=== PATIENT | female | born 1960 | race Caucasian/White ===

== ENCOUNTER 2016-12-17 07:48 | Outpatient (CLI) | payer BC, OTHER ==
[2016-12-17 08:37] LABS: ALBUMIN 3.8 g/dL (3.4-5.0); BILIRUBIN,TOTAL 0.4 mg/dL (0.2-1.0); CALCIUM, SERUM 8.6 mg/dL (8.5-10.1); CREATININE 0.9 mg/dL (0.6-1.3); POTASSIUM 4.1 mmol/L (3.5-5.1); TOTAL PROTEIN, SERUM 7.4 g/dL (6.4-8.2)
== END 2016-12-17 23:59 | disposition home or self-care (01) ==
LOC: LAB 07:48
DX: R73.9 Hyperglycemia, unspecified (principal); E78.5 Hyperlipidemia, unspecified
CPT/HCPCS: 36415; 80053-TC; 80061-TC

== ENCOUNTER 2017-03-18 08:06 | Outpatient (CLI) | payer BC, OTHER ==
[2017-03-18 08:49] LABS: BILIRUBIN,TOTAL 0.5 mg/dL (0.2-1.0); CALCIUM, SERUM 9.1 mg/dL (8.5-10.1); CREATININE 0.9 mg/dL (0.6-1.3); POTASSIUM 4.3 mmol/L (3.5-5.1); TOTAL PROTEIN, SERUM 7.6 g/dL (6.4-8.2)
== END 2017-03-18 23:59 | disposition home or self-care (01) ==
LOC: LAB 08:06
DX: E78.5 Hyperlipidemia, unspecified (principal); R94.5 Abnormal results of liver function studies
CPT/HCPCS: 36415; 80053-TC; 80061-TC

== ENCOUNTER 2017-06-18 07:43 | Outpatient (CLI) | payer BC, OTHER ==
[2017-06-18 09:03] LABS: ALBUMIN 4.1 g/dL (3.4-5.0); BILIRUBIN,TOTAL 0.5 mg/dL (0.2-1.0); CALCIUM, SERUM 9.2 mg/dL (8.5-10.1); CREATININE 0.8 mg/dL (0.6-1.3); POTASSIUM 4.3 mmol/L (3.5-5.1); TOTAL PROTEIN, SERUM 7.8 g/dL (6.4-8.2)
== END 2017-06-18 23:59 | disposition home or self-care (01) ==
LOC: LAB 07:43
DX: E78.5 Hyperlipidemia, unspecified (principal); R73.9 Hyperglycemia, unspecified
CPT/HCPCS: 36415; 80053-TC; 80061-TC

== ENCOUNTER 2017-10-04 07:45 | Outpatient (CLI) | payer BC ==
[2017-10-04 09:32] LABS: CHOLESTEROL 251 mg/dL (<200); HDL CHOLESTEROL 54 mg/dL (40-60); LDL 168 mg/dL (0-99); TRIGLYCERIDES 101 mg/dL (30-150)
== END 2017-10-04 23:59 | disposition home or self-care (01) ==
LOC: LAB 07:45
DX: E78.5 Hyperlipidemia, unspecified (principal)
CPT/HCPCS: 36415; 80061-TC

== ENCOUNTER 2017-12-30 07:23 | Outpatient (CLI) | payer BC ==
[2017-12-30 09:09] LABS: ALBUMIN 3.8 g/dL (3.4-5.0); BILIRUBIN,TOTAL 0.5 mg/dL (0.2-1.0); CALCIUM, SERUM 9.4 mg/dL (8.5-10.1); CREATININE 0.8 mg/dL (0.6-1.3); TOTAL PROTEIN, SERUM 7.7 g/dL (6.4-8.2)
== END 2017-12-30 23:59 | disposition home or self-care (01) ==
LOC: LAB 07:23
DX: E78.5 Hyperlipidemia, unspecified (principal); R73.9 Hyperglycemia, unspecified
CPT/HCPCS: 36415; 80053-TC; 80061-TC

== ENCOUNTER 2018-03-04 07:46 | Outpatient (CLI) | payer BC ==
[2018-03-04 08:20] LABS: BASOPHILS % (AUTO) 0.6 % (0.0-2.0); EOSINOPHILS % (AUTO) 3.8 % (0.0-6.0); HEMATOCRIT 38 % (33-45); HEMOGLOBIN 12.9 g/dL (11.5-14.8); LYMPHOCYTES # (AUTO) 2.1 /CMM (0.8-4.8); LYMPHOCYTES % (AUTO) 39.8 % (20.0-44.0); MEAN CORPUSCULAR HGB CONC 34 g/dl (31.0-36.0); MEAN CORPUSCULAR VOLUME 92 fL (82-100); MONOCYTES # (AUTO) 0.4 /CMM (0.1-1.30); MONOCYTES % (AUTO) 7.3 % (2.0-12.0); NEUTROPHILS # (AUTO) 2.6 /CMM (1.8-8.9); NEUTROPHILS % (AUTO) 48.5 % (43.0-81.0); PLATELET COUNT (AUTO) 287 /CMM (150-450); RDW COEFFICIENT OF VARIATION 13.3 (11.5-15.0); WHITE BLOOD COUNT (AUTO) 5.3 K/uL (4.3-11.0)
[2018-03-04 08:36] LABS: ALBUMIN 3.9 g/dL (3.4-5.0); BILIRUBIN,TOTAL 0.5 mg/dL (0.2-1.0); CALCIUM, SERUM 9.1 mg/dL (8.5-10.1); CREATININE 0.9 mg/dL (0.6-1.3); TOTAL PROTEIN, SERUM 7.7 g/dL (6.4-8.2)
[2018-03-04 08:44] LABS: FREE T4 (FREE THYROXINE) 1.08 ng/dL (0.76-1.46); THYROID STIMULATING HORMONE 1.814 uIU/mL (0.358-3.74)
[2018-03-04 09:41] LABS: OCCULT BLOOD STOOL NEGATIVE (NEGATIVE)
[2018-03-04 09:46] LABS: APPEARANCE,URINE CLEAR (CLEAR); BILIRUBIN,URINE NEGATIVE (NEGATIVE); BLOOD, URINE NEGATIVE Ery/uL (NEGATIVE); COLOR,URINE YELLOW (YELLOW); KETONES,URINE NEGATIVE (NEGATIVE); LEUKOCYTE ESTERASE ,URINE NEGATIVE (NEGATIVE); NITRITE, URINE NEGATIVE (NEGATIVE); PH,URINE 6.5 (5.0-8.0); PROTEIN,URINE NEGATIVE (NEGATIVE); UGLUCOSE NEGATIVE (NEGATIVE); UROBILINOGEN,URINE 0.2 EU/dL (0.2)
[2018-03-05 08:31] LABS: T3, FREE 3.3 pg/mL (2.0-4.4)
== END 2018-03-04 23:59 | disposition home or self-care (01) ==
LOC: LAB 07:46
DX: K21.9 Gastro-esophageal reflux disease without esophagitis (principal); E55.9 Vitamin D deficiency, unspecified; E78.5 Hyperlipidemia, unspecified; R73.9 Hyperglycemia, unspecified; R42 Dizziness and giddiness
CPT/HCPCS: 36415; 80053-TC; 80061-TC; 81000-TC; 82272-TC; 82306; 84439-TC; 84443-TC; 84481; 85025-TC

== ENCOUNTER 2018-11-15 07:43 | Outpatient (CLI) | payer BC ==
[2018-11-15 08:23] LABS: ALBUMIN 3.8 g/dL (3.4-5.0); BILIRUBIN,TOTAL 0.3 mg/dL (0.2-1.0); CALCIUM, SERUM 8.8 mg/dL (8.5-10.1); CREATININE 0.8 mg/dL (0.6-1.3); POTASSIUM 4.1 mmol/L (3.5-5.1); TOTAL PROTEIN, SERUM 7.2 g/dL (6.4-8.2)
== END 2018-11-15 23:59 | disposition home or self-care (01) ==
LOC: LAB 07:43
DX: E78.5 Hyperlipidemia, unspecified (principal); R73.9 Hyperglycemia, unspecified
CPT/HCPCS: 36415; 80053-TC; 80061-TC

== ENCOUNTER 2019-05-08 09:42 | Emergency (ER) | payer BC, OTHER ==
[~2019-05-08] VITALS: Ht 152.4 cm; Wt 63.5 kg
[2019-05-08 10:07] VITALS: BP 133/74
== END 2019-05-08 10:14 | disposition home or self-care (01) ==
LOC: ER 09:42
DX: M54.5 Low back pain (principal); M25.561 Pain in right knee

== ENCOUNTER 2019-05-12 10:50 | Emergency (ER) | payer BC, MEDICAID ==
[~2019-05-12] VITALS: Ht 162.6 cm; Wt 60.8 kg
[2019-05-12 11:01] VITALS: BP 127/78
== END 2019-05-12 12:12 | disposition home or self-care (01) ==
LOC: ER 10:52
DX: S39.012A Strain of muscle, fascia and tendon of lower back, initial encounter (principal); S80.02XA Contusion of left knee, initial encounter; W01.0XXA Fall on same level from slipping, tripping and stumbling without subsequent striking against object, initial encounter; Y93.89 Activity, other specified; Y92.89 Other specified places as the place of occurrence of the external cause; Y99.8 Other external cause status
CPT/HCPCS: 73562

== ENCOUNTER 2020-04-15 11:10 | Emergency (ER) | payer BC, MEDICAID ==
[~2020-04-15] VITALS: Ht 162.6 cm; Wt 70.8 kg
--- NOTE | 2020-04-15 11:20 | NUR ---
"HEART PALPITATION" X 2 DAYS. PATIENT A/OX4, BREATHING EVEN AND UNLABORED, NO SOB NOTED. NEEDS ATTENDED, KEPT COMFORTABLE. 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
[2020-04-15 11:45] LABS: BASOPHILS % (AUTO) 0.5 % (0.0-2.0); EOSINOPHILS % (AUTO) 1.8 % (0.0-6.0); HEMATOCRIT 38 % (33-45); HEMOGLOBIN 12.8 g/dL (11.5-14.8); LYMPHOCYTES # (AUTO) 1.7 /CMM (0.8-4.8); LYMPHOCYTES % (AUTO) 33.5 % (20.0-44.0); MEAN CORPUSCULAR HGB CONC 34 g/dl (31.0-36.0); MEAN CORPUSCULAR VOLUME 95 fL (82-100); MONOCYTES # (AUTO) 0.3 /CMM (0.1-1.30); MONOCYTES % (AUTO) 6.7 % (2.0-12.0); NEUTROPHILS # (AUTO) 2.9 /CMM (1.8-8.9); NEUTROPHILS % (AUTO) 57.5 % (43.0-81.0); PLATELET COUNT (AUTO) 239 /CMM (150-450); RED BLOOD CELL COUNT(AUTO) 4.02 MIL/uL (4.0-5.2); WHITE BLOOD COUNT (AUTO) 5.1 K/uL (4.3-11.0)
[2020-04-15 11:53] LABS: CALCIUM, SERUM 8.9 mg/dL (8.5-10.1); CARBON DIOXIDE 30 mmol/L (21-32); CHLORIDE 104 mmol/L (98-107); CREATININE 0.9 mg/dL (0.6-1.3); GLUCOSE 121 mg/dL (74-106); POTASSIUM 3.4 mmol/L (3.5-5.1); SODIUM SERUM 139 mmol/L (136-145); UREA NITROGEN, BLOOD 14 mg/dL (7-18)
[2020-04-15 11:58] LABS: ALANINE AMINOTRANSFERASE 32 U/L (12-78); ALKALINE PHOSPHATASE 81 U/L (46-116); ASPARTATE AMINOTRANSFERASE 17 U/L (15-37); BILIRUBIN,DIRECT 0.1 mg/dL (0.0-0.2); BILIRUBIN,TOTAL 0.3 mg/dL (0.2-1.0); TOTAL PROTEIN, SERUM 7.2 g/dL (6.4-8.2)
[2020-04-15 12:38] VITALS: BP 122/90
--- NOTE | 2020-04-15 12:38 | NUR ---
patient stated she feels better. covid swab sent to lab. Patient discharged to home in stable condition. Written and verbal after care instructions given. Patient verbalizes understanding of instruction.
--- NOTE | 2020-04-17 03:52 | NUR ---
LAB CALLED REGARDING COVID TEST RESULTS. PT NEGATIVE.
== END 2020-04-15 13:03 | disposition home or self-care (01) ==
LOC: ER 11:13
DX: R00.2 Palpitations (principal); Z11.59 Encounter for screening for other viral diseases; E78.00 Pure hypercholesterolemia, unspecified; Z82.49 Family history of ischemic heart disease and other diseases of the circulatory system
CPT/HCPCS: 36415; 71045; 80048; 80076; 84484; 85025; 93005; 99285; C9803; U0003

== ENCOUNTER 2020-08-23 10:31 | Emergency (ER) | payer MEDICAID ==
[~2020-08-23] VITALS: Ht 162.6 cm; Wt 68.0 kg
[2020-08-23 10:50] VITALS: BP 129/83
--- NOTE | 2020-08-23 11:33 | NUR ---
Patient discharged to home in stable condition. Written and verbal after care instructions given. Patient verbalizes understanding of instruction. Pt ambulatory with a steady gait
== END 2020-08-23 11:40 | disposition home or self-care (01) ==
LOC: ER 10:40
DX: M54.12 Radiculopathy, cervical region (principal); E78.00 Pure hypercholesterolemia, unspecified

== ENCOUNTER 2020-10-02 09:50 | Emergency (ER) | payer MEDICAID, OTHER ==
[~2020-10-02] VITALS: Ht 162.6 cm; Wt 68.0 kg
[2020-10-02 10:00] VITALS: BP 114/64
--- NOTE | 2020-10-02 10:30 | NUR ---
Patient discharged to home in stable condition. Written and verbal after care instructions given. Patient verbalizes understanding of instruction.
== END 2020-10-02 10:32 | disposition home or self-care (01) ==
LOC: ER 09:53
DX: Z20.828 Contact with and (suspected) exposure to other viral communicable diseases (principal); E78.00 Pure hypercholesterolemia, unspecified; I70.90 Unspecified atherosclerosis
CPT/HCPCS: 99283; C9803; U0003

== ENCOUNTER 2020-12-30 06:13 | Emergency (ER) | payer BC, MEDICAID ==
[~2020-12-30] VITALS: Ht 162.6 cm; Wt 68.0 kg
[2020-12-30] MEDS ORDERED: HYDR28CR67 TP (06:38)
[2020-12-30] MEDS ORDERED: PEG15DRO2 OP (06:38)
[2020-12-30] MEDS ORDERED: TETR15DR85 OP (06:39)
[2020-12-30] MEDS ORDERED: HYDR453.4 TP (06:40)
--- NOTE | 2020-12-30 06:45 | NUR ---
BILAT EYE PAIN X 1 WEEK WORSE TODAY, STATES ALLERGIES, TAKEN ZYRTEC WITH NO RELIEF
--- NOTE | 2020-12-30 06:54 | NUR ---
Patient discharged to home in stable condition. Written and verbal after care instructions given. Patient verbalizes understanding of instruction.
[2020-12-30 06:55] VITALS: BP 161/70
[2020-12-30] MEDS ORDERED: NAPHAZOLINE HCL/PHENIR MAL 15 ML BOTTLE OP ONE (07:00)
== END 2020-12-30 06:55 | disposition home or self-care (01) ==
LOC: ER 06:16
DX: H10.13 Acute atopic conjunctivitis, bilateral (principal); H01.006 Unspecified blepharitis left eye, unspecified eyelid; H01.003 Unspecified blepharitis right eye, unspecified eyelid; E78.00 Pure hypercholesterolemia, unspecified; Z79.899 Other long term (current) drug therapy

== ENCOUNTER 2021-08-04 15:08 | Outpatient (CLI) | payer BC ==
[~2021-08-04 15:08] MED LIST: HYDR453.4 TP; TETR15DR85 OP
== END 2021-08-04 23:59 | disposition home or self-care (01) ==
LOC: RAD 15:08
PROVIDERS: ATTEND Legal Medicine
DX: M19.041 Primary osteoarthritis, right hand (principal); M25.731 Osteophyte, right wrist; M79.89 Other specified soft tissue disorders
CPT/HCPCS: 73110; 73130-TC

== ENCOUNTER 2021-12-17 09:21 | Outpatient (CLI) | payer BC ==
[2021-12-17 10:39] LABS: BILIRUBIN,URINE NEGATIVE (NEGATIVE); COLOR,URINE YELLOW (YELLOW); LEUKOCYTE ESTERASE ,URINE NEGATIVE (NEGATIVE); NITRITE, URINE NEGATIVE (NEGATIVE); PH,URINE 6.5 (5.0-8.0); PROTEIN,URINE NEGATIVE (NEGATIVE); UGLUCOSE NEGATIVE (NEGATIVE); UROBILINOGEN,URINE 0.2 EU/dL (0.2)
[2021-12-17 10:40] LABS: BASOPHILS % (AUTO) 0.6 % (0.0-2.0); HEMATOCRIT 38 % (33-45); HEMOGLOBIN 12.9 g/dL (11.5-14.8); LYMPHOCYTES # (AUTO) 1.3 K/uL (0.8-4.8); LYMPHOCYTES % (AUTO) 29.2 % (20.0-44.0); MEAN CORPUSCULAR HGB CONC 34 g/dl (31.0-36.0); MEAN CORPUSCULAR VOLUME 94 fL (82-100); MONOCYTES # (AUTO) 0.3 K/uL (0.1-1.30); MONOCYTES % (AUTO) 6.9 % (2.0-12.0); NEUTROPHILS # (AUTO) 2.6 K/uL (1.8-8.9); NEUTROPHILS % (AUTO) 60.3 % (43.0-81.0); PLATELET COUNT (AUTO) 246 K/uL (150-450); WHITE BLOOD COUNT (AUTO) 4.3 K/uL (4.3-11.0)
[2021-12-17 11:12] LABS: CHOLESTEROL 267 mg/dL (<200); FERRITIN 41 ng/mL (8-388); FREE T4 (FREE THYROXINE) 1.07 ng/dL (0.76-1.46); HDL CHOLESTEROL 53 mg/dL (40-60); LDL 180 mg/dL (0-99); TRIGLYCERIDES 143 mg/dL (30-150); URIC ACID 5.3 mg/dL (2.6-7.2)
[2021-12-17 11:13] LABS: C-REACTIVE PROTEIN < 0.2 mg/dL (0.0-0.9)
[2021-12-17 11:28] LABS: IRON, SERUM 74 ug/dl (50-175); TOTAL IRON BINDING CAPACITY 351 ug/dl (250-450)
[2021-12-17 11:58] LABS: ALANINE AMINOTRANSFERASE 28 U/L (12-78); ALBUMIN 3.9 g/dL (3.4-5.0); ALKALINE PHOSPHATASE 81 U/L (46-116); ASPARTATE AMINOTRANSFERASE 15 U/L (15-37); BILIRUBIN,TOTAL 0.4 mg/dL (0.2-1.0); CALCIUM, SERUM 8.9 mg/dL (8.5-10.1); CARBON DIOXIDE 27 mmol/L (21-32); CHLORIDE 104 mmol/L (98-107); CREATININE 0.8 mg/dL (0.6-1.3); GLUCOSE 106 mg/dL (74-106); POTASSIUM 3.7 mmol/L (3.5-5.1); SODIUM SERUM 140 mmol/L (136-145); TOTAL PROTEIN, SERUM 7.8 g/dL (6.4-8.2); UREA NITROGEN, BLOOD 14 mg/dL (7-18)
== END 2021-12-17 23:59 | disposition home or self-care (01) ==
LOC: LAB 09:21
PROVIDERS: ATTEND Legal Medicine
DX: I10 Essential (primary) hypertension (principal); E78.5 Hyperlipidemia, unspecified; D64.9 Anemia, unspecified; E03.9 Hypothyroidism, unspecified; E55.9 Vitamin D deficiency, unspecified; R53.1 Weakness; Z00.00 Encounter for general adult medical examination without abnormal findings
CPT/HCPCS: 36415; 80053-TC; 80061-TC; 82306; 82607-TC; 82728-TC; 83540-TC; 84439-TC; 84443-TC; 84550-TC; 85025-TC; 85652-TC; 86140-TC; 86200; 86431-TC

== ENCOUNTER 2022-03-16 14:26 | Emergency (ER) | payer BC, OTHER ==
[~2022-03-16] VITALS: Ht 160 cm; Wt 70.3 kg
--- NOTE | 2022-03-16 14:32 | NUR ---
BIBS C/O R THUMB LAC FROM A BROKEN GLASS TODAY. AAOX4, BREATHING EVEN AND UNLABORED, PULSES 2+ BILATERALLY, SKIN WARM TO TOUCH. CMS INTACT. WILL CONTINUE TO MONITOR.
--- NOTE | 2022-03-16 16:10 | NUR ---
Patient discharged to home in stable condition. Written and verbal after care instructions given. Patient verbalizes understanding of instruction.
--- NOTE | 2022-03-16 16:10 | NUR ---
DRESSING DONE BY ARCELIA CASTRO AT BEDSIDE
[2022-03-16 16:11] VITALS: BP 136/84
== END 2022-03-16 16:11 | disposition home or self-care (01) ==
LOC: ER 14:32
DX: S61.411A Laceration without foreign body of right hand, initial encounter (principal); E78.00 Pure hypercholesterolemia, unspecified; W25.XXXA Contact with sharp glass, initial encounter; Y93.89 Activity, other specified; Y92.89 Other specified places as the place of occurrence of the external cause; Y99.8 Other external cause status
CPT/HCPCS: 12002; 73130; 99283; A6403

== ENCOUNTER 2022-11-03 13:59 | Outpatient (CLI) | payer BC, OTHER | END 2022-11-03 23:59 | disposition home or self-care (01) | LOC: RAD 13:59 | PROVIDERS: ATTEND Legal Medicine | DX: Z75.3 Unavailability and inaccessibility of health-care facilities (principal) ==

== ENCOUNTER 2022-12-04 14:39 | Outpatient (CLI) | payer BC, OTHER | END 2022-12-04 23:59 | disposition home or self-care (01) | LOC: RAD 14:39 | PROVIDERS: ATTEND Legal Medicine | DX: M17.11 Unilateral primary osteoarthritis, right knee (principal); M25.861 Other specified joint disorders, right knee; M25.761 Osteophyte, right knee | CPT/HCPCS: 73564-TC ==

== ENCOUNTER 2023-05-30 19:53 | Emergency (ER) | payer BC, OTHER ==
[~2023-05-30] VITALS: Ht 157.5 cm; Wt 66.7 kg
[2023-05-30 20:41] LABS: BASOPHILS % (AUTO) 0.7 % (0.0-2.0); EOSINOPHILS % (AUTO) 1.2 % (0.0-6.0); HEMATOCRIT 37 % (33-45); HEMOGLOBIN 12.2 g/dL (11.5-14.8); LYMPHOCYTES # (AUTO) 2.3 K/uL (0.8-4.8); LYMPHOCYTES % (AUTO) 37.8 % (20.0-44.0); MEAN CORPUSCULAR HGB CONC 33 g/dl (31.0-36.0); MEAN CORPUSCULAR VOLUME 94 fL (82-100); MONOCYTES # (AUTO) 0.4 K/uL (0.1-1.30); NEUTROPHILS # (AUTO) 3.3 K/uL (1.8-8.9); NEUTROPHILS % (AUTO) 53.3 % (43.0-81.0); PLATELET COUNT (AUTO) 239 K/uL (150-450); RED BLOOD CELL COUNT(AUTO) 3.92 MIL/uL (4.0-5.2); WHITE BLOOD COUNT (AUTO) 6.1 K/uL (4.3-11.0)
[2023-05-30 20:54] LABS: CALCIUM, SERUM 9.4 mg/dL (8.5-10.1); CREATININE 0.8 mg/dL (0.6-1.3); POTASSIUM 3.7 mmol/L (3.5-5.1)
[2023-05-30 21:00] LABS: ALBUMIN 3.6 g/dL (3.4-5.0); BILIRUBIN,DIRECT 0.1 mg/dL (0.0-0.2); BILIRUBIN,TOTAL 0.2 mg/dL (0.2-1.0); TOTAL PROTEIN, SERUM 7.4 g/dL (6.4-8.2)
[2023-05-30 21:10] LABS: BILIRUBIN,URINE NEGATIVE (NEGATIVE); COLOR,URINE YELLOW (YELLOW); LEUKOCYTE ESTERASE ,URINE TRACE (NEGATIVE); NITRITE, URINE NEGATIVE (NEGATIVE); PH,URINE 5.5 (5.0-8.0); PROTEIN,URINE NEGATIVE (NEGATIVE); UGLUCOSE NEGATIVE (NEGATIVE); UROBILINOGEN,URINE 0.2 EU/dL (0.2)
[2023-05-30 21:15] LABS: BACTERIA,URINE None seen /HPF (None Seen); RBC,URINE 0-2 /HPF (0-2)
[2023-05-30] MEDS ORDERED: IBUP-1957 PO (21:51)
[2023-05-30 22:05] VITALS: BP 115/90; TEMP 98.3; O2SAT 98
== END 2023-05-30 22:06 | disposition home or self-care (01) ==
LOC: ER 19:55
DX: R10.9 Unspecified abdominal pain (principal); E78.00 Pure hypercholesterolemia, unspecified
CPT/HCPCS: 36415; 80048-TC; 80076-TC; 81001; 85025-TC

== ENCOUNTER 2023-07-05 18:31 | Emergency (ER) | payer BC, OTHER ==
[~2023-07-05] VITALS: Ht 162.6 cm; Wt 68.9 kg
[~2023-07-05 18:31] MED LIST changes: +IBUP-1957 PO
[2023-07-05] MEDS ORDERED: ONDANSETRON HCL/PF 4 MG/2 ML VIAL ONE (19:17)
[2023-07-05] MEDS ORDERED: FAMOTIDINE/PF INJ 20 MG/2 ML VIAL IV ONE ×2 (19:17→19:30)
[2023-07-05 19:29] LABS: BASOPHILS # (AUTO) 0.1 K/uL (0.0-0.2); BASOPHILS % (AUTO) 1.2 % (0.0-2.0); EOSINOPHILS # (AUTO) 0.1 K/uL (0.0-0.7); HEMATOCRIT 39 % (33-45); HEMOGLOBIN 12.9 g/dL (11.5-14.8); LYMPHOCYTES # (AUTO) 1.8 K/uL (0.8-4.8); LYMPHOCYTES % (AUTO) 25.8 % (20.0-44.0); MEAN CORPUSCULAR HEMOGLOBIN 31 PG (26.0-33.0); MEAN CORPUSCULAR HGB CONC 33 g/dl (31.0-36.0); MEAN CORPUSCULAR VOLUME 94 fL (82-100); MONOCYTES # (AUTO) 0.4 K/uL (0.1-1.30); MONOCYTES % (AUTO) 6.1 % (2.0-12.0); NEUTROPHILS # (AUTO) 4.7 K/uL (1.8-8.9); NEUTROPHILS % (AUTO) 65.9 % (43.0-81.0); PLATELET COUNT (AUTO) 247 K/uL (150-450); RED BLOOD CELL COUNT(AUTO) 4.18 MIL/uL (4.0-5.2); RED CELL DISTRIBUTION WIDTH 13.4 % (11.5-15.0); WHITE BLOOD COUNT (AUTO) 7.1 K/uL (4.3-11.0)
[2023-07-05] MEDS ORDERED: ONDANSETRON HCL/PF - ER 4 MG/2 ML VIAL IV ONE (19:30)
[2023-07-05] MEDS ORDERED: IV NS 0.9% 1,000 ML IV ONE (19:30)
[2023-07-05 19:36] LABS: CALCIUM, SERUM 9.1 mg/dL (8.5-10.1); CREATININE 1.3 mg/dL (0.6-1.3); MAGNESIUM 2.1 mg/dL (1.8-2.4); POTASSIUM 3.4 mmol/L (3.5-5.1)
[2023-07-05] MEDS ORDERED: POTASSIUM CHLORIDE 20 MEQ TAB.PRT.SR PO ONE ×2 (19:56→20:00)
[2023-07-05 20:03] VITALS: BP 146/84; TEMP 98.7; O2SAT 98
== END 2023-07-05 20:04 | disposition home or self-care (01) ==
LOC: ER 18:37
DX: G47.00 Insomnia, unspecified (principal); R11.2 Nausea with vomiting, unspecified; E78.00 Pure hypercholesterolemia, unspecified; Z79.899 Other long term (current) drug therapy; Z56.3 Stressful work schedule
CPT/HCPCS: 99284; 96374; 96361; 96375; 85025; 80048; 83735; 36415; J3490; J2405; J7030

== ENCOUNTER 2023-08-06 16:24 | Emergency (ER) | payer BC, OTHER ==
[~2023-08-06] VITALS: Ht 162.6 cm; Wt 65.8 kg
[2023-08-06] MEDS ORDERED: ONDANSETRON HCL/PF 4 MG/2 ML VIAL ONE (16:48)
[2023-08-06] MEDS ORDERED: FAMOTIDINE/PF INJ 20 MG/2 ML VIAL IV ONE ×2 (16:48→17:00)
[2023-08-06] MEDS ORDERED: ONDANSETRON HCL/PF 4 MG/2 ML VIAL IVP ONE (17:00)
[2023-08-06] MEDS ORDERED: IV NS 0.9% 1,000 ML BAG IV ONE (17:00)
[2023-08-06 17:05] LABS: BASOPHILS % (AUTO) 0.5 % (0.0-2.0); EOSINOPHILS % (AUTO) 0.6 % (0.0-6.0); HEMATOCRIT 37 % (33-45); HEMOGLOBIN 12.1 g/dL (11.5-14.8); LYMPHOCYTES # (AUTO) 1.6 K/uL (0.8-4.8); LYMPHOCYTES % (AUTO) 23.2 % (20.0-44.0); MEAN CORPUSCULAR HEMOGLOBIN 31 PG (26.0-33.0); MEAN CORPUSCULAR HGB CONC 33 g/dl (31.0-36.0); MEAN CORPUSCULAR VOLUME 93 fL (82-100); MONOCYTES # (AUTO) 0.5 K/uL (0.1-1.30); MONOCYTES % (AUTO) 7.3 % (2.0-12.0); NEUTROPHILS # (AUTO) 4.7 K/uL (1.8-8.9); NEUTROPHILS % (AUTO) 68.4 % (43.0-81.0); PLATELET COUNT (AUTO) 261 K/uL (150-450); RED BLOOD CELL COUNT(AUTO) 3.93 MIL/uL (4.0-5.2); RED CELL DISTRIBUTION WIDTH 13.5 % (11.5-15.0); WHITE BLOOD COUNT (AUTO) 6.9 K/uL (4.3-11.0)
[2023-08-06 17:16] LABS: CALCIUM, SERUM 9.2 mg/dL (8.5-10.1); CARBON DIOXIDE 23 mmol/L (21-32); CHLORIDE 97 mmol/L (98-107); CREATININE 0.8 mg/dL (0.6-1.3); GLUCOSE 111 mg/dL (74-106); POTASSIUM 3.1 mmol/L (3.5-5.1); SODIUM SERUM 131 mmol/L (136-145); UREA NITROGEN, BLOOD 13 mg/dL (7-18)
[2023-08-06 17:21] LABS: ALANINE AMINOTRANSFERASE 32 U/L (12-78); ALBUMIN 4.2 g/dL (3.4-5.0); ALKALINE PHOSPHATASE 83 U/L (46-116); ASPARTATE AMINOTRANSFERASE 19 U/L (15-37); BILIRUBIN,DIRECT 0.1 mg/dL (0.0-0.2); BILIRUBIN,TOTAL 0.3 mg/dL (0.2-1.0); TOTAL PROTEIN, SERUM 7.7 g/dL (6.4-8.2)
[2023-08-06 19:06] VITALS: BP 148/67; TEMP 98.1; O2SAT 99
== END 2023-08-06 19:07 | disposition home or self-care (01) ==
LOC: ER 16:28
DX: R53.1 Weakness (principal); E78.00 Pure hypercholesterolemia, unspecified; Z79.899 Other long term (current) drug therapy
CPT/HCPCS: 99285; 96374; 71045; 96361; 93005; 85025; 80048; 80076; 36415; 84484; 82962; J2405; J7030; A6403; J3490

== ENCOUNTER → 2024-04-01 | Emergency (ER) | payer BC, OTHER ==
[~2024-04-01] VITALS: Ht 162.6 cm; Wt 67.1 kg
[~2024-04-01] MED LIST changes: +CARB15DR12 EACH EAR; +CARBAMIDE PEROXIDE OTIC 15 ML BOTTLE EACH EAR ONE; +CARBAMIDE PEROXIDE OTIC 15 ML BOTTLE ONE; +CIPR10DR LEFT EAR; +DOCUSATE SODIUM LIQ 100 MG/10 ML UDC ONE
[2024-04-01 18:01] VITALS: BP 132/77; TEMP 98.2; O2SAT 99
[2024-04-01] MEDS: DOCUSATE SODIUM LIQ 100 MG/10 ML UDC NG ONE (18:43)
[2024-04-01] MEDS: DOCUSATE SODIUM LIQ 100 MG/10 ML UDC XX ONE (20:57)
== END | disposition home or self-care (01) ==
LOC: ER 17:57
DX: H61.23 Impacted cerumen, bilateral (principal); H92.02 Otalgia, left ear; I10 Essential (primary) hypertension; E78.00 Pure hypercholesterolemia, unspecified; Z79.899 Other long term (current) drug therapy

== ENCOUNTER 2025-08-13 11:37 | Outpatient (CLI) | payer BC, OTHER ==
[~2025-08-13 11:37] MED LIST changes: -CARBAMIDE PEROXIDE OTIC 15 ML BOTTLE EACH EAR ONE; -CARBAMIDE PEROXIDE OTIC 15 ML BOTTLE ONE; -DOCUSATE SODIUM LIQ 100 MG/10 ML UDC ONE
[2025-08-13 12:27] LABS: ERYTHROCYTE SEDIMENTATION RATE 4 MM/HR (0-30)
[2025-08-13 12:32] LABS: IRON, SERUM 61.0 ug/dl (50-175)
[2025-08-13 12:51] LABS: LDL 186.0 mg/dL (0-99)
[2025-08-13 12:55] LABS: ASPARTATE AMINOTRANSFERASE 21.0 U/L (15-37); CALCIUM, SERUM 9.1 mg/dL (8.5-10.1); CREATININE 0.9 mg/dL (0.6-1.3); SODIUM SERUM 140.0 mmol/L (136-145); TOTAL PROTEIN, SERUM 7.8 g/dL (6.4-8.2); UREA NITROGEN, BLOOD 15.0 mg/dL (7-18)
[2025-08-13 13:42] LABS: PLATELET COUNT (AUTO) 248 K/uL (150-450); RED BLOOD CELL COUNT(AUTO) 4.20 MIL/uL (4.0-5.2); RED CELL DISTRIBUTION WIDTH 13.7 % (11.5-15.0); WHITE BLOOD COUNT (AUTO) 4.7 K/uL (4.3-11.0)
[2025-08-13 14:02] LABS: APPEARANCE,URINE CLEAR (CLEAR); BLOOD, URINE NEGATIVE Ery/uL (NEGATIVE); LEUKOCYTE ESTERASE ,URINE NEGATIVE (NEGATIVE); NITRITE, URINE NEGATIVE (NEGATIVE); UGLUCOSE NEGATIVE (NEGATIVE)
[2025-08-14 04:12] LABS: VIT D, 25-HYDROXY 51.4 ng/mL (30.0-100.0)
[2025-08-14 05:08] LABS: CARBOHYDRATE AG 19-9 20.0 U/mL (0-35); CARCINOEMBRYONIC ANTIGEN (CEA) 3.7 ng/mL (0.0-4.7)
[2025-08-14 08:07] LABS: *TESTOSTERONE, SERUM 36.0 ng/dL (3-67); ESTRADIOL (*R) 14.5 pg/mL (0.0-54.7); FOLIC ACID 16.9 ng/mL (>3.0); FOLLICLE STIMULATION HORMONE 67.7 mIU/mL (25.8-134.8); LUTEINIZING HORMONE 43.6 mIU/mL (7.7-58.5)
== END 2025-08-13 23:59 | disposition home or self-care (01) ==
LOC: LAB 11:37
PROVIDERS: ATTEND Legal Medicine
DX: E11.9 Type 2 diabetes mellitus without complications (principal); E78.00 Pure hypercholesterolemia, unspecified; Z00.00 Encounter for general adult medical examination without abnormal findings; R53.1 Weakness; D64.9 Anemia, unspecified; E03.9 Hypothyroidism, unspecified; I10 Essential (primary) hypertension; E55.9 Vitamin D deficiency, unspecified
CPT/HCPCS: 36415; 80053-TC; 80061-TC; 82306; 82378; 82607-TC; 82670; 82728-TC; 83001; 83002; 83540-TC; 84403; 84439-TC; 84443-TC; 84550-TC; 85025-TC; 85652-TC; 86140-TC; 86301; 87086-TC